=== PATIENT | female | born 1950 | race Caucasian/White ===

== ENCOUNTER 2020-07-07 04:24 | Observation (INO) | payer OTHER ==
[2020-07-07 04:46] VITALS: BMI 29.4
[2020-07-07 06:08] LABS: BASO % 0.4 % (0-2.0); EOS % 2.1 % (0-4.5); HEMATOCRIT 41.2 % (32.4-45.2); HEMOGLOBIN 13.9 GM/dL (10.7-15.3); LYMPH % 31.8 % (8-40); MCH 30.3 pg (25.7-33.7); MCHC 33.7 g/dl (32.0-36.0); MEAN CELL VOLUME 89.7 fl (80-96); MEAN PLT VOLUME 9.5 fl (7.5-11.1); MONO % 9.1 % (3.8-10.2); NEUT % 56.6 % (42.8-82.8); PLATELET COUNT 278 K/MM3 (134-434); RBC 4.59 M/mm3 (3.60-5.2); RDW 14.3 % (11.6-15.6); WHITE BLOOD COUNT 6.8 K/mm3 (4.0-10.0)
[2020-07-07 06:33] LABS: CHLORIDE 105 mmol/L (98-107); SODIUM 136 mmol/L (136-145)
[2020-07-07 06:35] LABS: CALCIUM 8.9 mg/dL (8.5-10.1)
[2020-07-07 06:36] LABS: ALBUMIN 3.5 g/dl (3.4-5.0); BLOOD UREA NITROGEN 15.7 mg/dL (7-18); CO2 26 mmol/L (21-32); GLUCOSE,RANDOM 136 mg/dL (74-106); MAGNESIUM 2.1 mg/dL (1.8-2.4)
[2020-07-07 06:39] LABS: CREATININE 0.9 mg/dL (0.55-1.3); SGOT/AST 57 U/L (15-37); SGPT/ALT 28 U/L (13-61)
[2020-07-07 06:41] LABS: BILIRUBIN,TOTAL 0.5 mg/dL (0.2-1); TOT PROT 7.4 g/dl (6.4-8.2)
[2020-07-07 06:42] LABS: ALK PHOS 85 U/L (45-117)
[2020-07-07 06:51] LABS: ANION GAP 5 MMOL/L (8-16)
[2020-07-07 06:52] LABS: POTASSIUM 6.1 mmol/L (3.5-5.1)
[2020-07-07] MEDS ORDERED: SODIUM CHLORIDE 500 ML IV STA (07:30)
[2020-07-07] MEDS ORDERED: MECLIZINE HCL 25 MG TABLET (FP) PO ONE (07:30)
[2020-07-07] MEDS ORDERED: MECLIZINE HCL 25 MG TABLET (FP) ONE (07:59)
[2020-07-07 08:36] LABS: POTASSIUM 4.8 mmol/L (3.5-5.1)
[2020-07-07 08:37] LABS: CALCIUM 8.8 mg/dL (8.5-10.1)
[2020-07-07 08:41] LABS: CREATININE 0.7 mg/dL (0.55-1.3)
[2020-07-07 11:06] LABS: PH,URINE 7.5 (5.0-8.0); URINE APPEARANCE CLEAR; URINE BILIRUBIN NEGATIVE (NEGATIVE); URINE COLOR YELLOW; URINE GLUCOSE (UA) NEGATIVE (NEGATIVE); URINE KETONE NEGATIVE (NEGATIVE); URINE LEUK ESTERASE NEGATIVE (NEGATIVE); URINE NITRITE NEGATIVE (NEGATIVE); URINE PROTEIN NEGATIVE (NEGATIVE); URINE UROBILINOGEN 0.2 mg/dL (0.2-1.0)
[2020-07-07] MEDS: ASPIRIN 81 MG CHEWABLE TABLETS PO SCH (11:07)
[2020-07-07] MEDS ORDERED: ENOXAPARIN NA (PORCINE) 40 MG/0.4 ML DISP.SYRIN SQ ONE (11:07)
[2020-07-07] MEDS: ENOXAPARIN NA (PORCINE) 40 MG/0.4 ML DISP.SYRIN SQ SCH (11:07)
[2020-07-07] MEDS ORDERED: ASPIRIN 81 MG CHEWABLE TABLETS ONE (11:07)
[2020-07-07] MEDS: INSULIN SLIDING SCALE (NOVOLOG) 1 VIAL SQ SCH ×3 (12:11→21:19)
[2020-07-07] MEDS ORDERED: ATORVASTATIN CA 20 MG TABLET (FP) PO SCH (22:00)
[2020-07-08] MEDS ORDERED: ACETAMINOPHEN 325 MG TABLET (FP) PO ONE (04:45)
[2020-07-08] MEDS: INSULIN SLIDING SCALE (NOVOLOG) 1 VIAL SQ SCH ×2 (06:09→11:14)
[2020-07-08 07:41] LABS: BASO % 0.5 % (0-2.0); EOS % 1.4 % (0-4.5); HEMATOCRIT 41.3 % (32.4-45.2); HEMOGLOBIN 13.5 GM/dL (10.7-15.3); LYMPH % 38.4 % (8-40); MCH 29.6 pg (25.7-33.7); MCHC 32.8 g/dl (32.0-36.0); MEAN CELL VOLUME 90.3 fl (80-96); MEAN PLT VOLUME 8.9 fl (7.5-11.1); NEUT % 49.7 % (42.8-82.8); PLATELET COUNT 243 K/MM3 (134-434); RBC 4.57 M/mm3 (3.60-5.2); RDW 14.4 % (11.6-15.6)
[2020-07-08 07:57] LABS: POTASSIUM 4.3 mmol/L (3.5-5.1)
[2020-07-08 08:00] LABS: ALBUMIN 3.5 g/dl (3.4-5.0); CALCIUM 8.9 mg/dL (8.5-10.1)
[2020-07-08 08:01] LABS: MAGNESIUM 2.2 mg/dL (1.8-2.4)
[2020-07-08 08:03] LABS: CREATININE 0.8 mg/dL (0.55-1.3)
[2020-07-08 08:04] LABS: PHOSPHOROUS 3.6 mg/dL (2.5-4.9)
[2020-07-08 08:05] LABS: BILIRUBIN,TOTAL 0.5 mg/dL (0.2-1); TOT PROT 6.6 g/dl (6.4-8.2)
[2020-07-08] MEDS ORDERED: PT OWN MED DRAWER 7, Y5N ONE (09:57)
[2020-07-08] MEDS: ENOXAPARIN NA (PORCINE) 40 MG/0.4 ML DISP.SYRIN SQ SCH (10:05)
[2020-07-08] MEDS: ASPIRIN 81 MG CHEWABLE TABLETS PO SCH (10:05)
[2020-07-08 13:51] VITALS: BP 130/58; PULSE 74; TEMP 98
== END 2020-07-08 16:30 | disposition home or self-care (01) ==
LOC: JER 04:24 → INTOOBSV 07:56 → JERBED 07:56 → UNDOADMOB 07:56 → J4S 15:57 → JERBED 15:57 → J4S 07-08 11:54
PROVIDERS: ADMIT Student in an Organized Health Care Education/Training Program; ATTEND Nurse Practitioner Acute Care
PROC: 3E023GC Introduction of Other Therapeutic Substance into Muscle, Percutaneous Approach (ICD-10-PCS; principal; 2020-07-08)
PROC: 3E0337Z Introduction of Electrolytic and Water Balance Substance into Peripheral Vein, Percutaneous Approach (ICD-10-PCS; 2020-07-08)
DX: Z29.9 Encounter for prophylactic measures, unspecified (principal); R42 Dizziness and giddiness; E11.9 Type 2 diabetes mellitus without complications; R00.1 Bradycardia, unspecified; R25.1 Tremor, unspecified; E78.5 Hyperlipidemia, unspecified; I10 Essential (primary) hypertension; Z20.822 Contact with and (suspected) exposure to COVID-19
CPT/HCPCS: 36415; 70450-TC; 71045-TC-FY; 80048; 80053; 80061; 81003; 82550; 82962; 83036; 83721; 83735; 84100; 84443; 84484; 85025; 93005; 93010; 96360; 96372; 97116-GP; 97161-GP; 99285-25; C9803; G0378; U0003